=== PATIENT | female | born 1960 | race Caucasian/White ===

== ENCOUNTER 2017-10-13 23:40 | Emergency (ER) | payer SELFPAY ==
[~2017-10-13] VITALS: Ht 165.1 cm; Wt 72.0 kg
[~2017-10-13 23:40] MED LIST: AZIT500I PO; PRED5PAK PO; TESS200C PO
[2017-10-14 00:01] VITALS: BP 120/58; PULSE 66; RESP 16; TEMP 98; O2SAT 100
--- NOTE | 2017-10-14 01:06 | PD ---
HPI Chief Complaint: Injury Time Seen by Provider: 01:01 Travel History International Travel<30 days: No Contact w/Intl Traveler<30days: No Traveled to known affect area: No History of Present Illness HPI 57-year-old female presents for evaluation of facial pain. She reports that prior to arrival she tripped outside and fell, hitting her face against the ground. No loss of consciousness. She is complaining of facial pain primarily at the nose. Pain is throbbing, constant, aggravated by falling with no relieving factors. She reports some bleeding from her nostrils as well. She denies any headache, neck or back pain. She is not on any blood thinning medications. Last tetanus vaccination unknown. No other complaints at this time. [facility] Past Medical History Immunizations Current: Yes Tetanus Vaccination: Unknown Influenza Vaccination: No ?: Unknown Social History Alcohol Use: No Tobacco Use: No Substance Use: No Allergies-Medications (Allergen,Severity, Reaction): Coded Allergies: Sulfa (Sulfonamide Antibiotics) (Unverified Allergy, Severe, CAN'T BREATH , 10/14/17) meperidine (Unverified Allergy, Unknown, Hives, 10/14/17) Reported Meds & Prescriptions Reported Meds & Active Scripts Active Augmentin (Amoxicillin-Clavulanate) 875-125 Mg Tab 1 Tab PO BID Tylenol-Codeine #3 (Acetaminophen-Codeine) 300-30 mg Tab 1 Tab PO Q6H PRN Sterapred 12 Day (Prednisone) 5 Mg Mir 5 Mg PO DIRECTED USE DIRECTED Azithromycin 500 Mg Tab 500 Mg PO DAILY Tessalon Perles (Benzonatate) 200 Mg Cap 200 Mg PO TIDPRN Review of Systems Except as stated in HPI: all other systems reviewed are Neg Physical Exam Narrative GENERAL: Well-developed well-nourished female no acute distress SKIN: Warm and dry. Small abrasion right side of nose. Some ecchymosis noted to the nose and face. HEAD: Atraumatic. Normocephalic. EYES: Pupils equal and round. No scleral icterus. No injection or drainage. ENT: No nasal bleeding or discharge. Mucous membranes pink and moist. As noted above. Tender to palpation along the bridge of the nose. There is some moist blood noted in both nasal passages. No obvious septal hematoma. NECK: Trachea midline. No JVD. CARDIOVASCULAR: Regular rate and rhythm. No murmur appreciated. RESPIRATORY: No accessory muscle use. Clear to auscultation. Breath sounds equal bilaterally. MUSCULOSKELETAL: No obvious deformities. No clubbing. No cyanosis. No edema. NEUROLOGICAL: Awake and alert. No obvious cranial nerve deficits. Motor grossly within normal limits. Normal speech. Data Data Last Documented VS Vital Signs Date Time Temp Pulse Resp B/P (MAP) Pulse Ox O2 Delivery O2 Flow Rate FiO2 10/14/17 00:01 98.0 66 16 120/58 (78) [address] Facial Bones W/O Iv Cont (10/14/17 ) Ice/Cold Pack (10/14/17 01:04) Tetanus/Diphtheria Tox Adult (Tetanus/Di (10/14/17 01:15) Ed Discharge Order (10/14/17 02:07) Wound Care (10/14/17 02:07) [facility] Medical Decision Making Medical Screen Exam Complete: Yes Emergency Medical Condition: Yes Medical Record Reviewed: Yes Differential Diagnosis Nasal fracture, septal hematoma, contusion Narrative Course CT the facial bones reveals nasal fracture, otherwise negative. At this point in time the plan is to discharge her with Tylenol with codeine, Augmentin prescriptions. She will be given a copy of her CT report for her records. She will follow-up next week with her primary care physician. Diagnosis Primary Impression: Nasal fracture Additional Instructions: Follow-up with primary care physician in 1 week. Keep the wound on your nose clean. Ice pack to the affected area several times a day 15 minutes at a time. Avoid blowing her nose, sucking through a straw. Return for any emergent medical conditions. Med/Other Pt SpecificInfo: Prescription(s) given Scripts Amoxicillin-Clavulanate (Augmentin) 875-125 Mg Tab 1 TAB PO BID for Infection, #10 TAB 0 Refills Prov: Andrea Arceo MD 10/14/17 Acetaminophen-Codeine (Tylenol-Codeine #3) 300-30 mg Tab 1 TAB PO Q6H Y for PAIN, #12 TAB 0 Refills Prov: Andrea Arceo MD 10/14/17 Disposition: 01 DISCHARGE HOME Condition: Stable Reid Hughes Oct 14, 2017 01:06
[2017-10-14] MEDS ORDERED: TETANUS/DIPHTHERIA TOXOID ADULT 0.5 ML VIAL IM ONE (01:15)
--- NOTE | 2017-10-14 01:34 | RADRPT ---
EXAM DATE: 10/14/2017 1:27 AM EDT AGE/SEX: 57 years / Female INDICATIONS: Trauma, fall. Laceration to nose. CLINICAL DATA: This is the patient's initial encounter. Patient reports that signs and symptoms have been present for 1 day and indicates a pain score of 9/10. MEDICAL/SURGICAL HISTORY: None. None. RADIATION DOSE: 29.28 CTDI (mGy) COMPARISON: No prior exams available for comparison. TECHNIQUE: Contiguous images in the axial and coronal planes were obtained using helical multirow de tector technique. Using automated exposure control and adjustment of the mA and/or kV according to p atient size, radiation dose was kept as low as reasonably achievable to obtain optimal diagnostic lazaro lity images. DICOM format image data is available electronically for review and comparison. FINDINGS: Orbits: The orbital and infraorbital osseous structures are intact. The retroconal structures have a normal configuration. No radiopaque foreign bodies are seen. Nasal Bone: Nasal bone fractures seen is seen within the superficial soft tissues of the nose. Zygomatic Arches: Symmetric without evidence of fracture. Sinuses: There is focal mucosal disease at the left maxillary sinus. The right maxillary, ethmoid, a nd frontal sinuses are intact. No air-fluid levels seen. Nasal Cavity: The nasal septum is intact and midline. The lacrimal ducts are intact. Soft Tissues: No radiopaque foreign bodies seen. No soft-tissue swelling is seen. Intracranial: No intracranial air seen. Cribriform Plate: Grossly intact. CONCLUSION: Nasal bone fractures. Electronically signed by: Amilcar Helms MD 10/14/2017 1:32 AM EDT
[2017-10-14] MEDS ORDERED: TYLETAB34 PO (02:06)
[2017-10-14] MEDS ORDERED: AUGM875T3 PO (02:06)
== END 2017-10-14 02:35 | disposition home or self-care (01) ==
LOC: NEPD 23:40
DX: S02.2XXA Fracture of nasal bones, initial encounter for closed fracture (principal); S00.31XA Abrasion of nose, initial encounter; Z23 Encounter for immunization; W01.0XXA Fall on same level from slipping, tripping and stumbling without subsequent striking against object, initial encounter
CPT/HCPCS: 70486; 90471; 90714